=== PATIENT | male | born 1960 | race Caucasian/White ===

== ENCOUNTER 2023-10-16 05:18 | Inpatient (IN) | payer MEDICAID ==
[~2023-10-16] VITALS: Ht 185.4 cm; Wt 83.5 kg
[2023-10-16] MEDS: MAGNESIUM/ALUMINUM HYDROXIDE/SIMETHICONE 30ML UDC PO STA (06:07)
[2023-10-16] MEDS: ONDANSETRON 4MG ODT PO STA (06:07)
[2023-10-16 06:18] LABS: CHLORIDE 98 mEq/L (98-107); POTASSIUM 4.2 mEq/L (3.5-5.1); SODIUM 127 mEq/L (136-145)
[2023-10-16 06:19] LABS: CALCIUM 8.6 mg/dL (8.7-10.4)
[2023-10-16 06:24] LABS: GLUCOSE 97 mg/dL (70-105); UREA NITROGEN BLOOD 55 mg/dL (9-23)
[2023-10-16 06:26] LABS: ACETAMINOPHEN 3 ug/mL (10-30); ALANINE AMINOTRANSFERASE 14 IU/L (10-49); ALBUMIN 4.6 g/dL (3.2-4.8); ASPARTATE AMINOTRANSFERASE 23 IU/L (<34); BILIRUBIN TOTAL 0.3 mg/dL (0.1-1.0)
[2023-10-16 06:42] LABS: BASOPHILS % 0.5 % (0.0-2.0); EOSINOPHILS % 0.2 % (0.0-5.0); HEMATOCRIT. 53.1 % (42.0-52.0); HEMOGLOBIN. 18.1 g/dL (14.0-18.0); LYMPHOCYTES % 10.6 % (20.0-50.0); MEAN CORPUSCULAR HEMOGLOBIN 32.8 pg (28.0-32.0); MEAN CORPUSCULAR HGB CONC 34.1 g/dL (31.0-37.0); MEAN CORPUSCULAR VOLUME 96.4 fL (80.0-94.0); MEAN PLATELET VOLUME 8.4 fl (7.4-10.4); MONOCYTES % 10.7 % (2.0-8.0); PLATELET 259 x1000/uL (130-400); RED BLOOD CELL COUNT 5.51 mill/uL (4.7-6.1); RED CELL DISTRIBUTION WIDTH 16.2 % (11.6-14.6); WHITE BLOOD COUNT 7.9 x1000/uL (4.5-11.0)
[2023-10-16 07:14] LABS: ETHANOL BLOOD < 10 mg/dL (<10); TROPONIN I HIGH SENSITIVITY < 4 ng/L (3.0-53)
[2023-10-16 07:17] LABS: CARBON DIOXIDE < 10 mEq/L (21-32)
[2023-10-16 07:18] LABS: CREATININE 5.9 mg/dL (0.6-1.3)
[2023-10-16] MEDS: SODIUM CHLORIDE 0.9% 1,000 ML IV ONE (07:35)
[2023-10-16 08:59] LABS: CHLORIDE 97 mEq/L (98-107); POTASSIUM 4.6 mEq/L (3.5-5.1); SODIUM 127 mEq/L (136-145)
[2023-10-16 09:00] LABS: CARBON DIOXIDE 17 mEq/L (21-32)
[2023-10-16] MEDS ORDERED: CLONIDINE 0.1MG TABLET PO PRN (09:00)
[2023-10-16] MEDS ORDERED: MAGNESIUM/ALUMINUM HYDROXIDE/SIMETHICONE 30ML UDC PO PRN (09:00)
[2023-10-16] MEDS ORDERED: DOCUSATE SODIUM 100MG CAPSULE PO PRN (09:00)
[2023-10-16] MEDS ORDERED: NA PHOS,M-B/NA PHOS,DI-BA ENEMA 118ML PR PRN (09:00)
[2023-10-16] MEDS ORDERED: IPRATROPIUM/ALBUTEROL 0.5-3(2.5)MG/3ML NEB HHN PRN (09:00)
[2023-10-16] MEDS ORDERED: SODIUM CHLORIDE 0.9% 1,000 ML IV SCH ×2 (09:00→18:15)
[2023-10-16] MEDS ORDERED: GUAIFENESIN 200MG/10ML SUGAR FREE UDC PO PRN (09:00)
[2023-10-16 09:01] LABS: CALCIUM 9.4 mg/dL (8.7-10.4)
[2023-10-16 09:05] LABS: GLUCOSE 116 mg/dL (70-105)
[2023-10-16 09:06] LABS: UREA NITROGEN BLOOD 61 mg/dL (9-23)
[2023-10-16 09:07] LABS: ACETAMINOPHEN 3 ug/mL (10-30); ALANINE AMINOTRANSFERASE 17 IU/L (10-49); ALBUMIN 5.1 g/dL (3.2-4.8); ASPARTATE AMINOTRANSFERASE 22 IU/L (<34); TROPONIN I HIGH SENSITIVITY 4 ng/L (3.0-53)
[2023-10-16 09:08] LABS: BILIRUBIN TOTAL 0.3 mg/dL (0.1-1.0); PROTEIN TOTAL 8.1 g/dL (6.0-8.3)
[2023-10-16 09:15] LABS: CREATININE 5.5 mg/dL (0.6-1.3)
[2023-10-16 10:47] LABS: BG CARBOXYHEMOGLOBIN 0.3 % (0.5-1.5); BG DEOXYHEMOGLOBIN 1.5 % (0.0-5.0); BG FRACTION INSPIRED OXYGEN 21; BG HCO3 ACT 13.4 mmol/L (22.0-26.0); BG METHEMOGLOBIN 0.3 % (0.0-1.5); BG OXYGEN SATURATION 98.5 % (92.0-98.5); BG OXYHEMOGLOBIN 97.9 % (94.0-97.0); BG PCO2 25.3 mmHg (35.0-45.0); BG PH 7.342 (7.350-7.450); BG PO2 124.9 mmHg (75.0-100.0); BG SAMPLE SITE RIGHT RADIAL; BG TOTAL HEMOGLOBIN 17.9 g/dL (12.0-18.0); BG VENT MODE ROOM AIR
[2023-10-16] MEDS: ENOXAPARIN 30MG/0.3ML SYR SUBCUT SCH (11:00)
[2023-10-16 11:08] LABS: CLARITY URINE CLEAR (CLEAR); COLOR URINE YELLOW (YELLOW); GLUCOSE URINE TRACE (NEGATIVE); KETONES URINE 1+ (NEGATIVE); LEUKOCYTE ESTERASE URINE NEGATIVE (NEGATIVE); NITRITE URINE NEGATIVE (NEGATIVE); OCCULT BLOOD URINE TRACE (NEGATIVE); PH URINE 5.5 (4.5-8.0); PROTEIN URINE 2+ (NEGATIVE); SPECIFIC GRAVITY URINE 1.016 (1.005-1.030); UROBILINOGEN URINE 0.2 E.U./dL (0.2-1.0)
[2023-10-16 11:19] LABS: *AMPHETAMINES SCREEN URINE NEGATIVE (NEGATIVE); *BARBITURATES SCREEN URINE NEGATIVE (NEGATIVE); *BENZODIAZEPINES SCREEN URINE NEGATIVE (NEGATIVE); *COCAINE SCREEN URINE NEGATIVE (NEGATIVE); BACTERIA URINE 1+; CANNABINOID URINE SCREEN NEGATIVE (NEGATIVE); CREATININE URINE RANDOM 106.6 mg/dL; ECSTASY MDMA SCREEN URINE NEGATIVE (NEGATIVE); METHADONE URINE SCREEN NEGATIVE (NEGATIVE); OPIATES URINE SCREEN NEGATIVE (NEGATIVE); PHENCYCLIDINE URINE SCREEN NEGATIVE (NEGATIVE); RBC URINE 0-2 /hpf (0-2); SQUAMOUS EPITHELIAL CELL URINE NONE SEEN /lpf (RARE/1+); WBC URINE 25-50 /hpf (0-2); YEAST URINE NONE SEEN
[2023-10-16] MEDS: SODIUM BICARBONATE 150 MEQ in DEXTROSE 5% WATER 850 ML IV SCH ×2 (11:30→23:00)
[2023-10-16] MEDS: FAMOTIDINE 20MG/2ML VIAL IV SCH (12:00)
[2023-10-16] MEDS: ONDANSETRON HCL 4MG/2ML INJ IV PRN (12:03)
[2023-10-16 13:08] LABS: CHLORIDE 102 mEq/L (98-107); POTASSIUM 4.5 mEq/L (3.5-5.1); SODIUM 127 mEq/L (136-145)
[2023-10-16 13:09] LABS: CALCIUM 8.8 mg/dL (8.7-10.4); CARBON DIOXIDE 14 mEq/L (21-32)
[2023-10-16 13:14] LABS: CREATININE 4.8 mg/dL (0.6-1.3); GLUCOSE 102 mg/dL (70-105); UREA NITROGEN BLOOD 48 mg/dL (9-23)
[2023-10-16 13:15] LABS: TROPONIN I HIGH SENSITIVITY 4 ng/L (3.0-53)
[2023-10-16 13:16] LABS: CREATINE KINASE 52 IU/L (46-171)
[2023-10-16 13:17] LABS: PHOSPHORUS 3.4 mg/dL (2.5-4.9)
[2023-10-16] MEDS ORDERED: ENOXAPARIN 100MG/ML SYR SUBCUT NR (19:00)
[2023-10-16 21:26] LABS: CHLORIDE 100 mEq/L (98-107); POTASSIUM 3.6 mEq/L (3.5-5.1); SODIUM 130 mEq/L (136-145)
[2023-10-16 21:27] LABS: CALCIUM 8.3 mg/dL (8.7-10.4); CARBON DIOXIDE 21 mEq/L (21-32)
[2023-10-16 21:31] LABS: PROTHROMBIN TIME 11.3 sec (9.6-11.0)
[2023-10-16 21:32] LABS: CREATININE 3.9 mg/dL (0.6-1.3); GLUCOSE 118 mg/dL (70-105)
[2023-10-16 21:33] LABS: UREA NITROGEN BLOOD 47 mg/dL (9-23)
[2023-10-16 21:34] LABS: ACETAMINOPHEN < 2 ug/mL (10-30); ALANINE AMINOTRANSFERASE 9 IU/L (10-49); ALBUMIN 3.9 g/dL (3.2-4.8); ASPARTATE AMINOTRANSFERASE 18 IU/L (<34)
[2023-10-16 21:35] LABS: BILIRUBIN TOTAL 0.6 mg/dL (0.1-1.0); PROTEIN TOTAL 6.6 g/dL (6.0-8.3)
[2023-10-16 22:27] LABS: BG CARBOXYHEMOGLOBIN 0.3 % (0.5-1.5); BG DEOXYHEMOGLOBIN 2.6 % (0.0-5.0); BG FRACTION INSPIRED OXYGEN 21; BG HCO3 ACT 18.3 mmol/L (22.0-26.0); BG METHEMOGLOBIN 0.3 % (0.0-1.5); BG OXYGEN SATURATION 97.4 % (92.0-98.5); BG OXYHEMOGLOBIN 96.8 % (94.0-97.0); BG PCO2 27.9 mmHg (35.0-45.0); BG PH 7.435 (7.350-7.450); BG PO2 93.5 mmHg (75.0-100.0); BG SAMPLE SITE RIGHT BRACHIAL; BG TOTAL HEMOGLOBIN 17.7 g/dL (12.0-18.0); BG VENT MODE ROOM AIR
[2023-10-16] MEDS: ENOXAPARIN 100MG/ML SYR SUBCUT SCH (22:50)
[2023-10-16 22:59] LABS: CREATINE KINASE 48 IU/L (46-171)
[2023-10-17] VITALS (7 sets, daily range): BP systolic 103–121; BP diastolic 59–83; PULSE 73–87; RESP 16–20; TEMP 97.5–99.9
[2023-10-17 00:16] LABS: HEMATOCRIT 45.7 % (42.0-52.0); HEMOGLOBIN 15.6 g/dL (14.0-18.0)
[2023-10-17] MEDS: SODIUM BICARBONATE 150 MEQ in DEXTROSE 5% WATER 850 ML IV SCH (05:58)
[2023-10-17 06:15] LABS: CHLORIDE 98 mEq/L (98-107); POTASSIUM 3.2 mEq/L (3.5-5.1); SODIUM 132 mEq/L (136-145)
[2023-10-17 06:16] LABS: CALCIUM 9.2 mg/dL (8.7-10.4); CARBON DIOXIDE 25 mEq/L (21-32)
[2023-10-17 06:17] LABS: HEMATOCRIT 45.1 % (42.0-52.0); HEMOGLOBIN 15.4 g/dL (14.0-18.0)
[2023-10-17 06:21] LABS: CREATININE 3.1 mg/dL (0.6-1.3); GLUCOSE 107 mg/dL (70-105); UREA NITROGEN BLOOD 43 mg/dL (9-23)
[2023-10-17 06:23] LABS: PHOSPHORUS 2.4 mg/dL (2.5-4.9)
[2023-10-17 06:25] LABS: T4 FREE 1.19 ng/dL (0.89-1.76); THYROID STIMULATING HORMONE 0.75 uIU/mL (0.55-4.78)
[2023-10-17] MEDS: SODIUM CHLORIDE 0.9% 1,000 ML IV SCH (08:04)
[2023-10-17] MEDS: POTASSIUM CHLORIDE 20MEQ/PACKET PO NR (08:04)
[2023-10-17] MEDS: POTASSIUM PHOSPHATE 20 MMOL in DEXT 5% WATER 243.3333 ML IV NR (08:50)
[2023-10-17] MEDS ORDERED: POTASSIUM PHOSPHATE 20 MMOL in DEXT 5% WATER 243.3333 ML IV NR (12:00)
[2023-10-17 12:31] LABS: HEMATOCRIT 45.6 % (42.0-52.0); HEMOGLOBIN 15.8 g/dL (14.0-18.0); MEAN CORPUSCULAR HEMOGLOBIN 32.6 pg (28.0-32.0); MEAN CORPUSCULAR HGB CONC 34.7 g/dL (31.0-37.0); MEAN CORPUSCULAR VOLUME 93.9 fL (80.0-94.0); PLATELET 235 x1000/uL (130-400); RED BLOOD CELL COUNT 4.86 mill/uL (4.7-6.1); RED CELL DISTRIBUTION WIDTH 15.8 % (11.6-14.6); WHITE BLOOD COUNT 6.1 x1000/uL (4.5-11.0)
[2023-10-17] MEDS: ENOXAPARIN 80MG/0.8ML SYR SUBCUT SCH (18:22)
[2023-10-18 00:04] VITALS: BP 115/75; PULSE 76; RESP 18; TEMP 98.8
[2023-10-18 04:00] VITALS: BP 118/75; PULSE 80; RESP 18; TEMP 98.1
[2023-10-18 05:56] LABS: BASOPHILS % 1.4 % (0.0-2.0); EOSINOPHILS % 2.7 % (0.0-5.0); HEMOGLOBIN. 14.4 g/dL (14.0-18.0); LYMPHOCYTES % 37.5 % (20.0-50.0); MEAN CORPUSCULAR HEMOGLOBIN 32.4 pg (28.0-32.0); MEAN CORPUSCULAR HGB CONC 34.4 g/dL (31.0-37.0); MEAN CORPUSCULAR VOLUME 94.1 fL (80.0-94.0); MONOCYTES % 14.1 % (2.0-8.0); NEUTROPHILS % 44.3 % (40.0-76.0); PLATELET 227 x1000/uL (130-400); RED BLOOD CELL COUNT 4.46 mill/uL (4.7-6.1); RED CELL DISTRIBUTION WIDTH 15.7 % (11.6-14.6); WHITE BLOOD COUNT 5.5 x1000/uL (4.5-11.0)
[2023-10-18 06:02] LABS: CARBON DIOXIDE 25 mEq/L (21-32); CHLORIDE 103 mEq/L (98-107); POTASSIUM 3.5 mEq/L (3.5-5.1); SODIUM 135 mEq/L (136-145)
[2023-10-18 06:03] LABS: CALCIUM 8.8 mg/dL (8.7-10.4)
[2023-10-18 06:08] LABS: GLUCOSE 85 mg/dL (70-105); UREA NITROGEN BLOOD 26 mg/dL (9-23)
[2023-10-18 06:32] LABS: CREATININE 1.8 mg/dL (0.6-1.3)
[2023-10-18 08:00] VITALS: BP 112/76; PULSE 75; RESP 19; TEMP 97.8
[2023-10-18 12:00] VITALS: BP 110/67; PULSE 86; RESP 18; TEMP 97.6
[2023-10-18] MEDS: ACETAMINOPHEN 325MG TABLET PO NR (13:16)
[2023-10-18 20:00] VITALS: BP 114/70; PULSE 75; RESP 19; TEMP 98.1
[2023-10-19] VITALS (8 sets, daily range): BP systolic 114–142; BP diastolic 68–87; PULSE 70–80; RESP 18–20; TEMP 97.6–99.4
[2023-10-19 08:48] LABS: HEMATOCRIT 41.7 % (42.0-52.0); HEMOGLOBIN 13.9 g/dL (14.0-18.0); MEAN CORPUSCULAR HEMOGLOBIN 32.3 pg (28.0-32.0); MEAN CORPUSCULAR HGB CONC 33.3 g/dL (31.0-37.0); MEAN CORPUSCULAR VOLUME 96.9 fL (80.0-94.0); PLATELET 226 x1000/uL (130-400); RED CELL DISTRIBUTION WIDTH 15.6 % (11.6-14.6); WHITE BLOOD COUNT 5.1 x1000/uL (4.5-11.0)
[2023-10-19 09:02] LABS: CARBON DIOXIDE 24 mEq/L (21-32); CHLORIDE 108 mEq/L (98-107); POTASSIUM 3.8 mEq/L (3.5-5.1); SODIUM 137 mEq/L (136-145)
[2023-10-19 09:03] LABS: CALCIUM 8.8 mg/dL (8.7-10.4)
[2023-10-19 09:07] LABS: CREATININE 1.3 mg/dL (0.6-1.3)
[2023-10-19 09:08] LABS: GLUCOSE 124 mg/dL (70-105); UREA NITROGEN BLOOD 18 mg/dL (9-23)
[2023-10-19 09:10] LABS: PHOSPHORUS 2.4 mg/dL (2.5-4.9)
[2023-10-19] MEDS: SODIUM CHLORIDE 0.9% 1,000 ML IV SCH (09:29)
[2023-10-19] MEDS: ACETAMINOPHEN 325MG TABLET PO PRN (09:29)
[2023-10-19] MEDS: MAGNESIUM 4 G PREMIX 100 ML IV NR (13:36)
[2023-10-19] MEDS: POTASSIUM PHOSPHATE 20 MMOL in DEXT 5% WATER 243.3333 ML IV NR (16:00)
[2023-10-20] VITALS: BP 141/88; PULSE 79; RESP 20; TEMP 97.8
[2023-10-20 04:00] VITALS: BP 145/78; PULSE 72; RESP 18; TEMP 97.2
[2023-10-20 08:20] VITALS: BP 138/81; PULSE 69; RESP 20; TEMP 97.8
[2023-10-20 10:05] LABS: HEMATOCRIT 40.8 % (42.0-52.0); HEMOGLOBIN 13.6 g/dL (14.0-18.0); MEAN CORPUSCULAR HEMOGLOBIN 32.6 pg (28.0-32.0); MEAN CORPUSCULAR HGB CONC 33.4 g/dL (31.0-37.0); MEAN CORPUSCULAR VOLUME 97.6 fL (80.0-94.0); PLATELET 240 x1000/uL (130-400); RED BLOOD CELL COUNT 4.17 mill/uL (4.7-6.1); RED CELL DISTRIBUTION WIDTH 15.9 % (11.6-14.6); WHITE BLOOD COUNT 5.4 x1000/uL (4.5-11.0)
[2023-10-20 10:21] LABS: CARBON DIOXIDE 18 mEq/L (21-32); CHLORIDE 108 mEq/L (98-107); SODIUM 137 mEq/L (136-145)
[2023-10-20 10:22] LABS: CALCIUM 8.9 mg/dL (8.7-10.4)
[2023-10-20 10:27] LABS: CREATININE 1.1 mg/dL (0.6-1.3); GLUCOSE 161 mg/dL (70-105); UREA NITROGEN BLOOD 12 mg/dL (9-23)
[2023-10-20 10:29] LABS: PHOSPHORUS 2.1 mg/dL (2.5-4.9)
[2023-10-20 12:00] VITALS: BP 129/81; PULSE 72; RESP 19; TEMP 97.5
[2023-10-20] MEDS ORDERED: POTASSIUM-SODIUM PHOSPHATE POWDER PACKET PO SCH (14:30)
[2023-10-20 16:00] VITALS: BP 126/79; PULSE 69; RESP 19; TEMP 97.9
[2023-10-20] MEDS: POTASSIUM-SODIUM PHOSPHATE POWDER PACKET PO NR (17:37)
[2023-10-20] MEDS: MAGNESIUM 4 G PREMIX 100 ML IV NR (17:37)
[2023-10-20 20:00] VITALS: BP 117/66; PULSE 77; RESP 18; TEMP 98.8
[2023-10-21] VITALS: BP 108/60; PULSE 71; RESP 18; TEMP 98.1
[2023-10-21 04:00] VITALS: BP 11/67; PULSE 70; RESP 18; TEMP 97.8
[2023-10-21 05:50] LABS: CARBON DIOXIDE 24 mEq/L (21-32); CHLORIDE 109 mEq/L (98-107); POTASSIUM 4.1 mEq/L (3.5-5.1); SODIUM 138 mEq/L (136-145)
[2023-10-21 05:52] LABS: CALCIUM 8.9 mg/dL (8.7-10.4)
[2023-10-21 05:53] LABS: HEMATOCRIT 38.8 % (42.0-52.0); HEMOGLOBIN 12.9 g/dL (14.0-18.0); MEAN CORPUSCULAR HGB CONC 33.2 g/dL (31.0-37.0); MEAN CORPUSCULAR VOLUME 96.4 fL (80.0-94.0); PLATELET 267 x1000/uL (130-400); RED BLOOD CELL COUNT 4.02 mill/uL (4.7-6.1); RED CELL DISTRIBUTION WIDTH 15.4 % (11.6-14.6); WHITE BLOOD COUNT 6.6 x1000/uL (4.5-11.0)
[2023-10-21 05:54] LABS: CREATININE 1.2 mg/dL (0.6-1.3)
[2023-10-21 05:56] LABS: GLUCOSE 85 mg/dL (70-105); UREA NITROGEN BLOOD 11 mg/dL (9-23)
[2023-10-21 05:58] LABS: PHOSPHORUS 2.6 mg/dL (2.5-4.9)
[2023-10-21 08:00] VITALS: BP 124/87; PULSE 76; RESP 19; TEMP 98
[2023-10-21 11:49] VITALS: BP 113/79; PULSE 78; RESP 18; TEMP 98.6
[2023-10-21 16:00] VITALS: BP 104/57; PULSE 78; RESP 20; TEMP 98.4
[2023-10-21 20:00] VITALS: BP 117/68; PULSE 74; RESP 18; TEMP 96.6
[2023-10-22] VITALS: BP 127/67; PULSE 72; RESP 18; TEMP 99
[2023-10-22 04:00] VITALS: BP 119/63; PULSE 64; RESP 18; TEMP 98.3
[2023-10-22 07:02] LABS: POTASSIUM 4.1 mEq/L (3.5-5.1)
[2023-10-22 07:11] LABS: PHOSPHORUS 2.8 mg/dL (2.5-4.9)
[2023-10-22 08:00] VITALS: BP 126/80; PULSE 64; RESP 16; TEMP 97.6
[2023-10-22] MEDS: MAGNESIUM 2 G PREMIX 50 ML IV NR (10:03)
[2023-10-22 12:00] VITALS: BP 120/74; PULSE 79; RESP 19; TEMP 97.8
[2023-10-22 16:00] VITALS: BP 124/81; PULSE 72; RESP 18; TEMP 97.8
[2023-10-22] MEDS: FAMOTIDINE 20MG/2ML VIAL IV SCH (22:00)
[2023-10-23] VITALS: BP 123/84; PULSE 73; RESP 18; TEMP 98.4
[2023-10-23 04:01] VITALS: BP 116/74; PULSE 71; RESP 18; TEMP 97.4
[2023-10-23 06:16] LABS: BASOPHILS % 1.1 % (0.0-2.0); EOSINOPHILS % 3.5 % (0.0-5.0); HEMATOCRIT. 40.3 % (42.0-52.0); HEMOGLOBIN. 13.5 g/dL (14.0-18.0); LYMPHOCYTES % 21.9 % (20.0-50.0); MEAN CORPUSCULAR HEMOGLOBIN 32.3 pg (28.0-32.0); MEAN CORPUSCULAR HGB CONC 33.4 g/dL (31.0-37.0); MEAN CORPUSCULAR VOLUME 96.6 fL (80.0-94.0); MEAN PLATELET VOLUME 8.3 fl (7.4-10.4); MONOCYTES % 10.1 % (2.0-8.0); NEUTROPHILS % 63.4 % (40.0-76.0); PLATELET 307 x1000/uL (130-400); RED BLOOD CELL COUNT 4.17 mill/uL (4.7-6.1); RED CELL DISTRIBUTION WIDTH 15.4 % (11.6-14.6); WHITE BLOOD COUNT 6.7 x1000/uL (4.5-11.0)
[2023-10-23 06:30] LABS: CALCIUM 9.3 mg/dL (8.7-10.4); CHLORIDE 104 mEq/L (98-107); POTASSIUM 4.2 mEq/L (3.5-5.1); SODIUM 139 mEq/L (136-145)
[2023-10-23 06:31] LABS: CARBON DIOXIDE 26 mEq/L (21-32)
[2023-10-23 06:36] LABS: CREATININE 1.2 mg/dL (0.6-1.3); GLUCOSE 96 mg/dL (70-105); UREA NITROGEN BLOOD 11 mg/dL (9-23)
[2023-10-23 06:38] LABS: PHOSPHORUS 3.6 mg/dL (2.5-4.9)
[2023-10-23 08:00] VITALS: BP 108/56; PULSE 74; RESP 18; TEMP 97.9
[2023-10-23] MEDS: MAGNESIUM 4 G PREMIX 100 ML IV NR (10:48)
[2023-10-23 12:00] VITALS: BP 112/58; PULSE 70; RESP 18; TEMP 97.2
[2023-10-23 16:00] VITALS: BP 122/62; PULSE 72; RESP 16; RESP 18; TEMP 97.8
[2023-10-23] MEDS: FLUOXETINE HCL 10 MG CAPSULE PO SCH (17:52)
[2023-10-23 20:00] VITALS: BP 109/68; PULSE 71; RESP 18; TEMP 98.8
[2023-10-24] VITALS: BP 102/75; PULSE 84; RESP 19; TEMP 98.1
[2023-10-24 04:00] VITALS: BP 119/76; PULSE 62; RESP 18; TEMP 97.7
[2023-10-24 06:55] LABS: CALCIUM 9.2 mg/dL (8.7-10.4); CARBON DIOXIDE 24 mEq/L (21-32); CHLORIDE 104 mEq/L (98-107); POTASSIUM 4.2 mEq/L (3.5-5.1); SODIUM 138 mEq/L (136-145)
[2023-10-24 07:00] LABS: CREATININE 1.2 mg/dL (0.6-1.3); GLUCOSE 91 mg/dL (70-105)
[2023-10-24 07:01] LABS: UREA NITROGEN BLOOD 12 mg/dL (9-23)
[2023-10-24 08:00] VITALS: BP 117/65; PULSE 77; RESP 20; TEMP 98.4
[2023-10-24 12:12] VITALS: BP 126/75; PULSE 85; RESP 20; TEMP 98.1
[2023-10-24 16:00] VITALS: BP 121/70; PULSE 79; RESP 20; TEMP 98.1
[2023-10-24 19:55] VITALS: BP 124/80; PULSE 80; RESP 20; TEMP 97.5
[2023-10-25] VITALS: BP 130/74; PULSE 77; RESP 22; TEMP 97.2
[2023-10-25 04:00] VITALS: BP 107/79; PULSE 82; RESP 20; TEMP 97.9
[2023-10-25 08:01] VITALS: BP 126/73; PULSE 68; RESP 19; TEMP 98.4
[2023-10-25 12:00] VITALS: BP 114/74; PULSE 73; RESP 18; TEMP 98.1
[2023-10-25 15:04] VITALS: BP 114/74; PULSE 73; TEMP 98.9; O2SAT 98
[2023-10-25 16:00] VITALS: BP 119/77; PULSE 74; RESP 19; TEMP 98.6
[2023-10-25] MEDS ORDERED: ENOXAPARIN 80MG/0.8ML SYR SUBCUT SCH (18:00)
== END 2023-10-25 18:45 | DRG 817 ==
LOC: ER 05:18 → 7EST 08:21 → EDBEDREQSVC 08:31 → EDBEDREQTM 08:31 → EDBEDREQ 08:31 → 6EST 10-22 18:20
PROVIDERS: ADMIT Preventive Medicine Clinical Informatics; ATTEND Preventive Medicine Clinical Informatics
DX: T39.392A Poisoning by other nonsteroidal anti-inflammatory drugs [NSAID], intentional self-harm, initial encounter (principal); N17.0 Acute kidney failure with tubular necrosis; I82.412 Acute embolism and thrombosis of left femoral vein; I82.432 Acute embolism and thrombosis of left popliteal vein; E87.1 Hypo-osmolality and hyponatremia; E87.20 Acidosis, unspecified; F32.A Depression, unspecified; I10 Essential (primary) hypertension; I34.1 Nonrheumatic mitral (valve) prolapse; J44.9 Chronic obstructive pulmonary disease, unspecified; Z20.822 Contact with and (suspected) exposure to COVID-19; K21.9 Gastro-esophageal reflux disease without esophagitis; T39.1X2A Poisoning by 4-Aminophenol derivatives, intentional self-harm, initial encounter; T40.602A Poisoning by unspecified narcotics, intentional self-harm, initial encounter; J98.11 Atelectasis; K92.1 Melena; R80.9 Proteinuria, unspecified; E87.6 Hypokalemia; F43.21 Adjustment disorder with depressed mood; Z91.51 Personal history of suicidal behavior; Y92.89 Other specified places as the place of occurrence of the external cause
CPT/HCPCS: 36415; 36600; 71045; 74018; 76770; 78582; 80048; 80053; 80305; 80307; 80320; 80329; 81003; 82375; 82550; 82570; 82805; 83605; 83735; 83880; 83930; 83935; 84100; 84132; 84300; 84439; 84443; 84484; 85014; 85018; 85025; 85027; 85044; 85379; 86850; 86900; 87426; 93005; 93971; 99285; C1893; J1650; J2405; J3475; J3490; J7030; J7060; J7070; Q0162; G0480